=== PATIENT | male | born 1970 | race Caucasian/White ===

== ENCOUNTER → 2019-12-28 08:24 | Outpatient (CLI) | payer MEDICAID, SELFPAY ==
--- NOTE | 2019-12-28 09:07 | RAD_ITS ---
STUDY: X-RAY CHEST REASON FOR EXAM: Male, 49 years old. CHEST PAIN, RECENT PNEUMONIA -- pt states pneumonia couple weeks ago, feeling better, just a follow up TECHNIQUE: PA and lateral views of the chest. COMPARISON: None. FINDINGS: Increased markings in the right upper lobe. This may represent a focal area of infiltrate. Follow-up is recommended. There is no demonstrated pleural abnormality. Normal size heart. Normal mediastinum and tee. Normal visualized pulmonary arteries. Normal visualized aortic arch and descending thoracic aorta. There are mild degenerative changes of the visualized thoracic spine. Normal visualized ribs, clavicles, and shoulders. There is no demonstrated abnormality of the visualized soft tissue structures of the upper abdomen. RAD/Chest PA and Lateral IMPRESSION: Increased markings in the right upper lobe. Early infiltrate should be ruled out. Electronically Signed: Ahmet Sauceda, at 15:36 EDT , Service support ,
[2019-12-28 09:55] LABS: Hematocrit 41.4 % (40-54); Hemoglobin 13.4 g/dL (13.0-16.5); Mean Corp Hgb Conc 32.4 g/dL (32-36); Mean Corpuscular Hgb 30.1 pg (27.0-32.0); Mean Platelet Vol. 9.9 fl (6.2-12.0); Platelet Count 386 K/mm3 (150-450); RBC Distribution Width CV 13.9 % (11.6-14.6); RBC Distribution Width SD 47.4 fl (35.1-43.9); Red Blood Count 4.45 M/mm3 (4.6-6.2); White Blood Count 10.3 K/mm3 (4.4-11.0)
[2019-12-28 10:06] LABS: BNP,B-Type NATRIURETIC PEPTIDE 125.4 pg/mL (0-100)
[2019-12-28 10:09] LABS: Hemoglobin A1c 5.8 % (3.8-5.6)
[2019-12-28 10:26] LABS: ALB/GLOB Ratio 0.9 RATIO (0.9-2.4); AST(SGOT) 20 U/L (15-37); Alanine Aminotransfer ALT/SGPT 33 U/L (16-61); Albumin, Serum 3.6 g/dL (3.2-5.0); Alkaline Phosphatase 54 U/L (45-117); Anion Gap 5 (5-15); BUN 26 mg/dL (7-18); BUN/Creat Ratio 21.1 RATIO (10-20); Calcium,Total 9.1 mg/dL (8.5-10.1); Chloride 102 mmol/L (98-107); Creatinine, Serum 1.23 mg/dL (0.70-1.30); EST Glomerular Filtration Rate 67 mL/min (>60); Est Glom Filt Rate - Afr Amer 81 mL/min (>60); Globulin 3.9 g/dL (2.2-4.2); Glucose 102 mg/dL (74-106); Potassium 4.5 mmol/L (3.5-5.1); Protein, Total 7.5 g/dL (6.4-8.2); Sodium Level 134 mmol/L (136-145)
== END ==
DX: R07.9 Chest pain, unspecified (principal); N17.9 Acute kidney failure, unspecified; E11.22 Type 2 diabetes mellitus with diabetic chronic kidney disease; I13.0 Hypertensive heart and chronic kidney disease with heart failure and stage 1 through stage 4 chronic kidney disease, or unspecified chronic kidney disease; I50.9 Heart failure, unspecified; N18.3 Chronic kidney disease, stage 3 (moderate); I42.6 Alcoholic cardiomyopathy; G47.30 Sleep apnea, unspecified; Z87.01 Personal history of pneumonia (recurrent)
CPT/HCPCS: 36415; 71046; 80053; 83036; 83880; 85027

== ENCOUNTER 2020-08-04 12:52 | Inpatient (IN) | payer MEDICAID, SELFPAY ==
[2020-08-04 12:54] VITALS: BP 156/97; PULSE 85; RESP 17; TEMP 36.7; O2SAT 95; BMI 38.3
--- NOTE | 2020-08-04 13:39 | ED.VISSUMM ---
- ER Visit Summary Date of Service: 08/04/20 Chief Complaint: Requesting detox History of Present Illness: The patient is a 50 M presenting with alcohol intoxication, requesting detox. He states that he last drank just prior to arrival. His last detox from alcohol was in September 2019. He states he was sober for about a month. He has now been drinking 12 beers a day and 1/5 of vodka per day. Denies drug use. Denies history of alcohol withdrawal seizures. Denies other complaints. Physical Examination: Vitals are stable. Patient is afebrile. Alert no acute distress. HEENT exam is unremarkable. Neck is supple. Lungs are clear and equal bilaterally. Heart is regular rate and rhythm. Abdomen is soft nontender nondistended. Extremities are unremarkable. Skin is warm and dry. No focal neurologic deficit. Remainder of exam is unremarkable. Emergency Department Course and Treatment: CBC, chemistries unremarkable. Tox is negative. Alcohol level 423. Patient would like to be admitted for detox. Discussed with the hospitalist for admission. Disposition: Admission Impression: Alcohol dependence This note was generated with [employer] dictation software. It may contain incorrect words, spelling, and punctuation that were not noted in review of the chart prior to signing ED Disposition - Plan for ED Patient: Referrals: Tracey Santillan DO [Primary Care Provider] -
[2020-08-04 14:47] VITALS: BP 134/83; PULSE 77; RESP 16; O2SAT 93
[2020-08-04 15:08] LABS: Absolute Lymphocyte Count 3.43 X10^3/uL (0.83-4.51); Absolute Neutrophil Count 4.1 X10^3/uL (2.0-7.7); Basophil# 0.07 X10^3/uL; Basophil% 0.7 % (0-1); Eosinophil# 0.21 X10^3/uL; Eosinophils% 2.2 % (0-5); Hematocrit 49.6 % (40-54); Hemoglobin 17.1 g/dL (13.0-16.5); Lymphocyte # 3.43 X10^3/ul (4.0); Lymphocyte % 36.3 % (19-41); Mean Corp Hgb Conc 34.5 g/dL (32-36); Mean Corpuscular Hgb 32.9 pg (27.0-32.0); Mean Corpuscular Volume 95.4 fL (80-94); Mean Platelet Vol. 8.9 fl (6.2-12.0); Monocyte# 1.56 X10^3/uL; Monocyte% 16.5 % (0-10); NRBC Flagged by Analyzer 0 % (0-5); Neutrophil # 4.08 X10^3/uL (2.7-7.7); Neutrophil % 43.1 % (47-70); POSITIVE DIFFERENTIAL YES; Platelet Count 302 K/mm3 (150-450); RBC Distribution Width CV 14.6 % (11.6-14.6); RBC Distribution Width SD 51.7 fl (35.1-43.9); White Blood Count 9.5 K/mm3 (4.4-11.0)
[2020-08-04 15:19] LABS: Differential Indicated SCAN CRITERIA MET
[2020-08-04 15:23] LABS: Amphetamine Urine VISTA NEGATIVE (<1000 ng/mL); Barbiturate Urine VISTA NEGATIVE (< 200 ng/mL); Benzodiazepine Urine VISTA NEGATIVE (< 200 ng/mL); Cocaine Urine VISTA NEGATIVE (< 300 ng/mL); Ecstacy Urine VISTA NEGATIVE (< 500 ng/mL); Methadone Urine VISTA NEGATIVE (< 300 ng/mL); PCP Urine VISTA NEGATIVE (< 25 ng/mL); THC Urine VISTA NEGATIVE (< 50 ng/mL); Vista UDS pH Range 5
[2020-08-04 15:29] VITALS: BP 146/80; PULSE 84; RESP 16; O2SAT 92
[2020-08-04 15:32] LABS: ALB/GLOB Ratio 0.8 RATIO (0.9-2.4); AST(SGOT) 34 U/L (15-37); Alanine Aminotransfer ALT/SGPT 37 U/L (16-61); Albumin, Serum 3.7 g/dL (3.2-5.0); Alkaline Phosphatase 77 U/L (45-117); Anion Gap 9 (5-15); BUN 13 mg/dL (7-18); BUN/Creat Ratio 11.7 RATIO (10-20); Calcium,Total 8.5 mg/dL (8.5-10.1); Chloride 100 mmol/L (98-107); Creatinine, Serum 1.11 mg/dL (0.70-1.30); EST Glomerular Filtration Rate 75 mL/min (>60); Est Glom Filt Rate - Afr Amer 91 mL/min (>60); Estimated Creatinine Clearance 86.68 ml/min; Globulin 4.7 g/dL (2.2-4.2); Glucose 100 mg/dL (74-106); Protein, Total 8.4 g/dL (6.4-8.2); Sodium Level 134 mmol/L (136-145)
--- NOTE | 2020-08-04 15:40 | ED.RN ---
pt does not want to follow the Plan of Care Agreement for Addiction Medicine Program. Dr. Johnson aware. Pt is currently attempting to find a ride from the ED.
--- NOTE | 2020-08-04 15:45 | ED.RN ---
from the time pt arrived to ED, he has been disrespectful to all and any staff that has interacted with him.
--- NOTE | 2020-08-04 15:46 | ED.RN ---
Dr. Johnson in room speaking with pt regarding staying vs leaving. Pt informed Dr. Salguero that he would think about it.
[2020-08-04 15:50] LABS: Differential Comment SCANNED
--- NOTE | 2020-08-04 16:05 | PCM.HP.STD ---
Problem List (1) Alcohol withdrawal Status: Acute (2) Alcoholism Status: Acute (3) Hyponatremia Status: Acute (4) Erythrocytosis Status: Acute (5) Tobacco abuse Status: Chronic History of Present Illness Date of Admission: 08/04/20 Mr Salter is a 50 year old M with a past medical history of alcoholism and tobacco abuse who presented to the emergency department at [facility] on 08/04/2019 requesting alcohol detox. His last drink was just prior to his arrival in the emergency department. He has undergone detox in the past with the most recent being September 2019. At that time, he was sober for about a year and a half and then started drinking again. He currently is drinking approximately 3 to 4 25 ounce beers and 1/5 of vodka per day. He is having no acute withdrawal symptoms at this time, as his blood alcohol level on admission is 423. Vital signs are stable other than some mild hypertension. His CBC is fairly unremarkable other than some mild erythrocytosis with a hemoglobin of 17.1; I suspect this is related to hemoconcentration as he appears mildly dehydrated. His CMP shows mild hyponatremia with a sodium of 134, his LFTs are normal. Patient does admit that his withdrawals have been bad in the past. His tox screen was negative except for an ethyl alcohol level of 423. He will be admitted to [facility] for further alcohol detox. Past Medical History Past Medical History (Chronic Problems): Chronic Problems Tobacco abuse (Chronic) Allergies No Known Allergies Allergy (Verified 08/04/20 12:53) Lives: Spouse/ Significant Other Smoking Status: Current every day smoker Tobacco Use: Cigarettes Alcohol: Heavy Drugs: None - *Family History Maternal History Items: No pertinent history Paternal History Items: No pertinent history Review of Systems Constitutional: Denies: Anorexia, Chills, Fever, Night Sweats, Malaise, Weakness, Weight Change, Fatigue Eyes: Denies: Blurred vision, Drainage, Eyelid Inflammation, Pain, Redness, Vision Change HEENT: Denies: Hard of Hearing, Head Aches, Nasal bleeding, Nasal Congestion, Post Nasal Drip, Sinus Congestion, Sinus Drainage, Sore Throat, Visual Changes Cardiovascular: Denies: Chest Pain, Chest Pressure, Chest Tightness, Edema, Orthopnea, Palpitations, Paroxysmal Noc. Dyspnea, Syncope Respiratory: Denies: Cough, Pleuritic Pain, Shortness of Breath, Sputum production, Wheezing Gastrointestinal: Denies: Abdominal Pain, Constipation, Diarrhea, Hematochezia, Nausea, Melena, Vomiting Genitourinary: Denies: Dysuria, Frequency, Urgency Musculoskeletal: Denies: Back Pain, Joint Pain, Joint stiffness, Joint swelling, Joint Tenderness, Neck Pain Skin: Denies: Dryness, Jaundice, Lesions, Pruritis, Rash, Skin Changes, Wounds Neurological: Denies: Balance problems, Confusion, Difficulty swallowing, Focal weakness, Headaches, Incoordination, Numbness, Tingling, Tremor, Seizures Psychiatric: Denies: Anxiety, Depression Endocrine: Denies: Change in Body Habitus, Heat/ Cold Intolerance, Polydipsia, Polyuria Hematologic/ Lymphatic: Denies: Adenopathy, Anemia, Easy Bruising, Easy Bleeding, Petechiae, Purpura VTE Information - Inpt Only VTE Present on Admission: No VTE Mechan Device Prophylaxis: None VTE Pharm Prophylaxis ordered?: No Reason prophylaxis not ordered:: Treatment Not Indicated Patient Problems: Active and Suspected Problems Alcohol withdrawal (Acute) Alcoholism (Acute) Hyponatremia (Acute) Erythrocytosis (Acute) - Physical Exam Vitals/I&O's: Vital Signs Temp Pulse Resp BP Pulse Ox 98.1 F 84 16 146/80 H 92 08/04/20 12:54 08/04/20 15:29 08/04/20 15:29 08/04/20 15:29 08/04/20 15:29 Oxygen Delivery Method Room Air Weight: 124.738 kg Body Mass Index (BMI) 38.3 General: Alert, Oriented x3, Cooperative, No apparent distress, Well developed, Well nourished, - - Middle-aged obese white male, who appears older than stated age, sitting on the edge of the bed, no signs of withdrawal at this time HEENT: Atraumatic, PERRLA, EOMI, Normocephalic, EAC Clear Oral: Moist Mucosa, No Gingival or Mucosal Lesions/ Ulcerations Neck: Supple, Trachea Midline, Thyroid Normal Size and Texture Lungs: No rhonchi, No rales, Diminished, Wheezes - Few scattered right base Cardiovascular: Regular Rhythm, Normal S1, Normal S2, No murmurs, No Ectopic Activity, No rub noted, No Gallop, Tachycardic - Mild Abdomen: Bowel Sounds Present, Soft, Non Tender, Non-Distended, Obese Extremities: No cyanosis, No edema, Capillary Refill Less than 3 Seconds, Clubbing - Bilateral upper extremities, Peripheral Pulses Normal Skin: No rashes, No breakdown Musculoskeletal: No Tenderness to Palpation of Joints or Extremities, No Muscle Wasting Lymphatic: No Cervical, Supraclavicular, or Inguinal Adenopathy Neurological: Cranial nerves II-XII grossly intact, Neuro grossly intact Psych/Mental Status: Appropriate, Depressed, - - Tearful after talking to his Laboratory Results 08/04/20 14:30: Urine Opiates Screen NEGATIVE, Urine Methadone Screen NEGATIVE, Ur Barbiturates Screen NEGATIVE, Ur Phencyclidine Scrn NEGATIVE, Ur Amphetamines Screen NEGATIVE, U Methamphetamin-MDMA NEGATIVE, U Benzodiazepines Scrn NEGATIVE, Urine Cocaine Screen NEGATIVE, U Cannabinoids Screen NEGATIVE, Ur Drug Screen Comment 08/04/20 14:45: WBC 9.5, RBC 5.20, Hgb 17.1 H, Hct 49.6, MCV 95.4 H, MCH 32.9 H, MCHC 34.5, RDW Std Deviation 51.7 H, RDW Coeff of Yecenia 14.6, Plt Count 302, MPV 8.9, Immature Gran % (Auto) 1.200 H, Neut % (Auto) 43.1 L, Lymph % (Auto) 36.3, Robeson % (Auto) 16.5 H, Eos % (Auto) 2.2, Baso % (Auto) 0.7, Absolute Neuts (auto) 4.1, Absolute Lymphs (auto) 3.43, Nucleated RBC % 0, Differential Comment SCANNED 08/04/20 14:45: Sodium 134 L, Potassium 4.0, Chloride 100, Carbon Dioxide 25.0, Anion Gap 9, BUN 13, Creatinine 1.11, Estim Creat Clear Calc 86.68, Est GFR (MDRD) Af Amer 91, Est GFR (MDRD) Non-Af 75, BUN/Creatinine Ratio 11.7, Glucose 100, Calcium 8.5, Total Bilirubin 0.30, AST 34, ALT 37, Alkaline Phosphatase 77, Total Protein 8.4 H, Albumin 3.7, Globulin 4.7 H, Albumin/Globulin Ratio 0.8 L 08/04/20 14:45: Ethyl Alcohol 423.0 H* Assessment/Plan All Active Problems Alcohol withdrawal (Acute) Alcoholism (Acute) Hyponatremia (Acute) Erythrocytosis (Acute) Acute alcohol withdrawal -Phenobarb taper -Supportive medications -CIWA -On Ativan -Thiamine and folate -180 follow Alcohol abuse -See above Mild hyponatremia -Suspect hypovolemic hyponatremia -We will run 1 L of IV fluids -Repeat in a.m. Erythrocytosis -Suspect hemoconcentration -1 L IV fluids -Repeat CBC in a.m. Tobacco abuse -Recommend cessation -Nicotine patch 21 mcg daily DVT prophylaxis -Early ambulation CODE STATUS -Full code Inpatient E&M: 35401 Init Hosp L2
[2020-08-04 16:58] VITALS: BP 186/89; PULSE 88; RESP 16; TEMP 36.1; O2SAT 95
[2020-08-04 18:01] VITALS: BMI 38.4
[2020-08-04 18:08] VITALS: BMI 40.0
[2020-08-04 18:12] VITALS: BP 131/67; PULSE 80; RESP 20; TEMP 36.6; O2SAT 97
[2020-08-04] MEDS: Phenobarbital 32.4 MG Tablet 64.8 MG PO ×2 (18:38→22:43)
[2020-08-04] MEDS: Lactated Ringers 1,000 ML 75 ML IV (18:38)
[2020-08-04 22:28] VITALS: BP 135/71; PULSE 86; RESP 16; TEMP 36.8; O2SAT 96
[2020-08-04] MEDS: Gabapentin 300 MG Capsule PO (22:43)
[2020-08-04] MEDS: Ondansetron 8 MG Tablet PO (22:43)
[2020-08-05] VITALS (9 sets, daily range): BP systolic 115–142; BP diastolic 57–82; PULSE 70–86; RESP 15–18; TEMP 36.7–37.1; O2SAT 93–96
[2020-08-05] MEDS: Phenobarbital 32.4 MG Tablet 64.8 MG PO ×6 (02:10→22:58)
[2020-08-05] MEDS: Gabapentin 300 MG Capsule PO ×2 (06:52→18:50)
[2020-08-05 07:00] LABS: Absolute Lymphocyte Count 1.33 X10^3/uL (0.83-4.51); Absolute Neutrophil Count 5.2 X10^3/uL (2.0-7.7); Basophil# 0.05 X10^3/uL; Basophil% 0.6 % (0-1); Eosinophil# 0.12 X10^3/uL; Eosinophils% 1.4 % (0-5); Hematocrit 47.2 % (40-54); Hemoglobin 15.4 g/dL (13.0-16.5); Lymphocyte # 1.33 X10^3/ul (4.0); Lymphocyte % 15.9 % (19-41); Mean Corp Hgb Conc 32.6 g/dL (32-36); Mean Corpuscular Hgb 31.8 pg (27.0-32.0); Mean Corpuscular Volume 97.5 fL (80-94); Mean Platelet Vol. 8.9 fl (6.2-12.0); Monocyte# 1.56 X10^3/uL; Monocyte% 18.6 % (0-10); NRBC Flagged by Analyzer 0 % (0-5); Neutrophil # 5.23 X10^3/uL (2.7-7.7); Neutrophil % 62.5 % (47-70); POSITIVE DIFFERENTIAL YES; Platelet Count 237 K/mm3 (150-450); RBC Distribution Width CV 14.8 % (11.6-14.6); RBC Distribution Width SD 53.6 fl (35.1-43.9); Red Blood Count 4.84 M/mm3 (4.6-6.2); White Blood Count 8.4 K/mm3 (4.4-11.0)
[2020-08-05 07:02] LABS: Differential Indicated SCAN CRITERIA MET
[2020-08-05 07:26] LABS: Anion Gap 2 (5-15); BUN 16 mg/dL (7-18); BUN/Creat Ratio 14.3 RATIO (10-20); Calcium,Total 8.6 mg/dL (8.5-10.1); Chloride 106 mmol/L (98-107); Creatinine, Serum 1.12 mg/dL (0.70-1.30); EST Glomerular Filtration Rate 74 mL/min (>60); Est Glom Filt Rate - Afr Amer 90 mL/min (>60); Estimated Creatinine Clearance 83.28 ml/min; Glucose 73 mg/dL (74-106); Potassium 4.8 mmol/L (3.5-5.1); Sodium Level 136 mmol/L (136-145)
--- NOTE | 2020-08-05 09:57 | ADDICTION ---
This inspector automatic typewriter attempted to meet with patient this morning to complete assessments and to begin planning for discharge. Patient requested to meet with this inspector automatic typewriter tomorrow after he has time to sleep and after the withdrawal medication begins to work. This inspector automatic typewriter will attempt to meet with patient tomorrow- 08/06/2019.
[2020-08-05] MEDS: Thiamine Hydrochloride 100 MG Tablet PO (11:01)
[2020-08-05] MEDS: Folic Acid 1 MG Tablet PO (11:01)
--- NOTE | 2020-08-05 12:56 | PN_ITS ---
Patient Problems: Active and Suspected Problems Alcohol withdrawal (Acute) Alcoholism (Acute) Hyponatremia (Acute) Erythrocytosis (Acute) Subjective: Patient seen and examined. He is being managed for acute alcohol withdrawal. He has no complaints this morning. Review of systems otherwise negative. CIWA score is 4 this morning. He has otherwise remained hemodynamically stable. Vitals/I&O's: Vital Signs Temp Pulse Resp BP Pulse Ox 98.1 F 84 18 126/57 H 96 08/05/20 10:55 08/05/20 10:55 08/05/20 10:55 08/05/20 10:55 08/05/20 10:55 Oxygen Flow Rate (L/min) 2 Oxygen Delivery Method Nasal Cannula Weight: 279 lb Body Mass Index (BMI) 40.0 Intake and Output for Last 24 Hours 08/03/20 08/04/20 08/05/20 23:59 23:59 23:59 Intake Total 993 / 993 Balance 993 / 993 General: Alert, Oriented x3, Cooperative, No apparent distress HEENT: Atraumatic, PERRLA, EOMI, Normocephalic Oral: Moist Mucosa Neck: Supple, No JVD, Negative Carotid Bruits, Negative Hepatojugular Reflux, No Nodes Lungs: Clear to auscultation, Normal air movement, No rhonchi, No wheeze, No rales Cardiovascular: Regular rate, Regular Rhythm, Normal S1, Normal S2, No murmurs Abdomen: Bowel Sounds Present, Soft, Non Tender, Non-Distended, No Hepato- splenomegaly Extremities: No clubbing, No cyanosis, No edema, Capillary Refill Less than 3 Seconds Skin: No rashes, No breakdown Musculoskeletal: No Tenderness to Palpation of Joints or Extremities Lymphatic: No Cervical, Supraclavicular, or Inguinal Adenopathy Neurological: Cranial nerves II-XII grossly intact, Neuro grossly intact, Motor Exam 5/5 strength throughout Psych/Mental Status: Normal Affect, Appropriate, Alert and oriented to time, place, person, mood and affect Laboratory Results 08/04/20 14:30: Urine Opiates Screen NEGATIVE, Urine Methadone Screen NEGATIVE, Ur Barbiturates Screen NEGATIVE, Ur Phencyclidine Scrn NEGATIVE, Ur Amphetamines Screen NEGATIVE, U Methamphetamin-MDMA NEGATIVE, U Benzodiazepines Scrn NEGATIVE, Urine Cocaine Screen NEGATIVE, U Cannabinoids Screen NEGATIVE, Ur Drug Screen Comment 08/04/20 14:45: WBC 9.5, RBC 5.20, Hgb 17.1 H, Hct 49.6, MCV 95.4 H, MCH 32.9 H, MCHC 34.5, RDW Std Deviation 51.7 H, RDW Coeff of Yecenia 14.6, Plt Count 302, MPV 8.9, Immature Gran % (Auto) 1.200 H, Neut % (Auto) 43.1 L, Lymph % (Auto) 36.3, Edmonson % (Auto) 16.5 H, Eos % (Auto) 2.2, Baso % (Auto) 0.7, Absolute Neuts (auto) 4.1, Absolute Lymphs (auto) 3.43, Nucleated RBC % 0, Differential Comment SCANNED 08/04/20 14:45: Sodium 134 L, Potassium 4.0, Chloride 100, Carbon Dioxide 25.0, Anion Gap 9, BUN 13, Creatinine 1.11, Estim Creat Clear Calc 86.68, Est GFR (MDRD) Af Amer 91, Est GFR (MDRD) Non-Af 75, BUN/Creatinine Ratio 11.7, Glucose 100, Calcium 8.5, Total Bilirubin 0.30, AST 34, ALT 37, Alkaline Phosphatase 77, Total Protein 8.4 H, Albumin 3.7, Globulin 4.7 H, Albumin/Globulin Ratio 0.8 L 08/04/20 14:45: Ethyl Alcohol 423.0 H* 08/05/20 06:38: WBC 8.4, RBC 4.84, Hgb 15.4, Hct 47.2, MCV 97.5 H, MCH 31.8, MCHC 32.6 D, RDW Std Deviation 53.6 H, RDW Coeff of Yecenia 14.8 H, Plt Count 237, MPV 8.9, Immature Gran % (Auto) 1.000 H, Neut % (Auto) 62.5, Lymph % (Auto) 15.9 L, Edmonson % (Auto) 18.6 H, Eos % (Auto) 1.4, Baso % (Auto) 0.6, Absolute Neuts (auto) 5.2, Absolute Lymphs (auto) 1.33, Nucleated RBC % 0, Differential Comment 08/05/20 06:38: Sodium 136, Potassium 4.8, Chloride 106, Carbon Dioxide 28.0, Anion Gap 2 L, BUN 16, Creatinine 1.12, Estim Creat Clear Calc 83.28, Est GFR (MDRD) Af Amer 90, Est GFR (MDRD) Non-Af 74, BUN/Creatinine Ratio 14.3, Glucose 73 L, Calcium 8.6 Current Medications Dicyclomine HCl (Dicyclomine 10 Mg Capsule) 20 mg PO Q6H PRN PRN PRN Reason: abdominal discomfort Folic Acid (Folic Acid 1 Mg Tablet) 1 mg PO DAILY@0800 [facility] Last Admin: 08/05/20 11:01 Dose: 1 mg Documented by: Gabapentin (Gabapentin 300 Mg Capsule) 300 mg PO Q8H PRN PRN PRN Reason: moderate to severe anxiety Last Admin: 08/05/20 06:52 Dose: 300 mg Documented by: Hydroxyzine Pamoate (Hydroxyzine Grace 25 Mg Capsule) 50 mg PO Q4H PRN PRN PRN Reason: mild anxiety Loperamide HCl (Loperamide 2 Mg Capsule) 2 mg PO Q4H PRN PRN PRN Reason: LOOSE STOOLS Lorazepam (Lorazepam 2 Mg/Ml Syringe) 2 mg IV Q2H PRN PRN; Protocol PRN Reason: CIWA score > 8 but <15 Nicotine (Nicotine 21 Mg Patch) 21 mg TD DAILY [facility] Last Admin: 08/05/20 11:01 Dose: 21 mg Documented by: Ondansetron HCl (Ondansetron 8 Mg Tablet) 8 mg PO Q8H PRN PRN PRN Reason: NAUSEA Last Admin: 08/04/20 22:43 Dose: 8 mg Documented by: Phenobarbital (Phenobarbital 32.4 Mg Tablet) 97.2 mg PO Q4H [facility]; Taper Stop: 08/09/20 01:59 Last Admin: 08/05/20 11:02 Dose: 97.2 mg Documented by: Sodium Chloride (0.9% Saline Lock 10 Ml Syringe) 10 - 40 ml IV UD PRN PRN Reason: SALINE FLUSH Thiamine HCl (Thiamine Hydrochloride 100 Mg Tablet) 100 mg PO DAILYCM [facility] Last Admin: 08/05/20 11:01 Dose: 100 mg Documented by: Trazodone HCl (Trazodone 100 Mg Tablet) 100 mg PO QHS PRN PRN Reason: INSOMNIA STROKE Vital Signs/Narrative: Vital Signs Temp Pulse Resp BP Pulse Ox 08/05/20 10:55 98.1 F 84 18 126/57 H 96 Medical Necessity - Tobacco Use Smoking Status: Current every day smoker Tobacco Use: Cigarettes Assessment/Plan All Active Problems Alcohol withdrawal (Acute) Alcoholism (Acute) Hyponatremia (Acute) Erythrocytosis (Acute) #Acute alcohol withdrawal * Alcohol withdrawal protocol with phenobarbital * On thiamine, Multivite and folic acid. * CIWA score this morning is 4. # Hyponatremia: resolved. Na is 136 today after gentle hydration with IVF #Nicotine dependence; counseled to quit. Nicotine patch 21mg daily # DVT prophylaxis: low risk. encourage ambulation Disposition; is to go home after he is done with a withdrawal protocol. [facility] consulted Inpatient E&M: 31415 Subs Hosp L2
[2020-08-05] MEDS: hydrOXYzine PAM 25 MG Capsule 50 MG PO ×2 (18:50→23:03)
[2020-08-05] MEDS: 0.9% Saline Lock 10 ML Syringe IV (19:58)
[2020-08-05] MEDS: LORazepam 2 MG/ML Syringe IV (19:58)
[2020-08-06 02:45] VITALS: BP 125/69; PULSE 66; RESP 18; TEMP 36.3; O2SAT 94
[2020-08-06] MEDS: Phenobarbital 32.4 MG Tablet 64.8 MG PO ×6 (02:48→21:19)
[2020-08-06 09:08] VITALS: BP 138/88; PULSE 63; RESP 18; TEMP 36.8; O2SAT 96
[2020-08-06] MEDS: Thiamine Hydrochloride 100 MG Tablet PO (09:11)
[2020-08-06] MEDS: Folic Acid 1 MG Tablet PO (09:11)
[2020-08-06] MEDS: LORazepam 2 MG/ML Syringe IV ×3 (09:28→21:19)
[2020-08-06] MEDS: 0.9% Saline Lock 10 ML Syringe IV ×2 (09:28→17:34)
[2020-08-06 10:45] VITALS: BP 144/76; PULSE 74; RESP 20; TEMP 36.4; O2SAT 97
--- NOTE | 2020-08-06 11:12 | PCM.PN.HOSP ---
Patient Problems: Active and Suspected Problems Alcohol withdrawal (Acute) Alcoholism (Acute) Hyponatremia (Acute) Erythrocytosis (Acute) Subjective: Patient seen and examined. He complains of feeling a bit nervous this morning but says he was just medicated for it. Review of signs otherwise negative. CIWA score today is 1. Vitals/I&O's: Vital Signs Temp Pulse Resp BP Pulse Ox 97.5 F L 74 20 H 144/76 H 97 08/06/20 10:45 08/06/20 10:45 08/06/20 10:45 08/06/20 10:45 08/06/20 10:45 Oxygen Flow Rate (L/min) 2 Oxygen Delivery Method CPAP Weight: 279 lb Body Mass Index (BMI) 40.0 Intake and Output for Last 24 Hours 08/04/20 08/05/20 08/06/20 23:59 23:59 23:59 Intake Total 2093 / 2493 900 / 900 Balance 2093 / 2493 900 / 900 General: Alert, Oriented x3, Cooperative, No apparent distress HEENT: Atraumatic, PERRLA, EOMI, Normocephalic Oral: Moist Mucosa Neck: Supple, No JVD, Negative Carotid Bruits, Negative Hepatojugular Reflux, No Nodes Lungs: Clear to auscultation, Normal air movement, No rhonchi, No wheeze, No rales Cardiovascular: Regular rate, Regular Rhythm, Normal S1, Normal S2, No murmurs Abdomen: Bowel Sounds Present, Soft, Non Tender, Non-Distended, No Hepato-splenomegaly Extremities: No clubbing, No cyanosis, No edema, Capillary Refill Less than 3 Seconds Skin: No rashes, No breakdown Musculoskeletal: No Tenderness to Palpation of Joints or Extremities Lymphatic: No Cervical, Supraclavicular, or Inguinal Adenopathy Neurological: Cranial nerves II-XII grossly intact, Neuro grossly intact, Motor Exam 5/5 strength throughout Psych/Mental Status: looks anxious, Alert and oriented to time, place, person, mood and affect Current Medications Dicyclomine HCl (Dicyclomine 10 Mg Capsule) 20 mg PO Q6H PRN PRN PRN Reason: abdominal discomfort Folic Acid (Folic Acid 1 Mg Tablet) 1 mg PO DAILY@0800 [facility] Last Admin: 08/06/20 09:11 Dose: 1 mg Documented by: Gabapentin (Gabapentin 300 Mg Capsule) 300 mg PO Q8H PRN PRN PRN Reason: moderate to severe anxiety Last Admin: 08/05/20 18:50 Dose: 300 mg Documented by: Hydroxyzine Pamoate (Hydroxyzine Grace 25 Mg Capsule) 50 mg PO Q4H PRN PRN PRN Reason: mild anxiety Last Admin: 08/05/20 23:03 Dose: 50 mg Documented by: Loperamide HCl (Loperamide 2 Mg Capsule) 2 mg PO Q4H PRN PRN PRN Reason: LOOSE STOOLS Lorazepam (Lorazepam 2 Mg/Ml Syringe) 2 mg IV Q2H PRN PRN; Protocol PRN Reason: CIWA score > 8 but <15 Last Admin: 08/06/20 09:28 Dose: 2 mg Documented by: Nicotine (Nicotine 21 Mg Patch) 21 mg TD DAILY [facility] Last Admin: 08/06/20 09:11 Dose: 21 mg Documented by: Ondansetron HCl (Ondansetron 8 Mg Tablet) 8 mg PO Q8H PRN PRN PRN Reason: NAUSEA Last Admin: 08/04/20 22:43 Dose: 8 mg Documented by: Phenobarbital (Phenobarbital 32.4 Mg Tablet) 64.8 mg PO Q4H [facility]; Taper Stop: 08/09/20 01:59 Last Admin: 08/06/20 09:11 Dose: 64.8 mg Documented by: Sodium Chloride (0.9% Saline Lock 10 Ml Syringe) 10 - 40 ml IV UD PRN PRN Reason: SALINE FLUSH Last Admin: 08/06/20 09:28 Dose: 10 ml Documented by: Thiamine HCl ([facility] Hydrochloride 100 Mg Tablet) [facility] Last Admin: 08/06/20 09:11 Dose: 100 mg Documented by: Trazodone HCl (Trazodone 100 Mg Tablet) 100 mg PO QHS PRN PRN Reason: INSOMNIA STROKE Vital Signs/Narrative: Vital Signs Temp Pulse Resp BP Pulse Ox 08/06/20 10:45 97.5 F L 74 20 H 144/76 H 97 08/06/20 09:08 98.2 F 63 18 138/88 H 96 Medical Necessity - Tobacco Use Smoking Status: Current every day smoker Tobacco Use: Cigarettes Assessment/Plan All Active Problems Alcohol withdrawal (Acute) Alcoholism (Acute) Hyponatremia (Acute) Erythrocytosis (Acute) #Acute alcohol withdrawal Alcohol withdrawal protocol with phenobarbital On thiamine, Multivite and folic acid. CIWA score this morning is 1 # Hyponatremia: resolved. #Nicotine dependence; counseled to quit. Nicotine patch 21mg daily # DVT prophylaxis: low risk. encourage ambulation Inpatient E&M: 86338 Subs Hosp L2
--- NOTE | 2020-08-06 11:48 | ADDICTION ---
This law writer attempted to meet with patient in his room. Patient was not alert and did not fully rouse to verbal queuing. This law writer followed up with nurse who noted that she recently gave him Ativan which causes drowsiness. This law writer was unable to meet with patient due to drowsiness. This law writer will attempt to meet with patient tomorrow 08/07/2020.
[2020-08-06 13:56] VITALS: BP 121/72; PULSE 71; RESP 18; TEMP 36.4; O2SAT 95
--- NOTE | 2020-08-06 15:26 | CHAPLAIN ---
Type of Pastoral Visit _x__ Initial Visit ___ Follow-up Visit ___ On-call Visit ___ General Patient Visit ___ Spiritual Assessment ___ Family Conference ___ Bereavement ___ Rapid Response ___ Code Blue ___ Other (describe below) Pastoral Care Referral From ___ Patient ___ Family ___ Nurse ___ Physician ___ Urban Planner ___ Behavioral Instructor _x__ Other (describe below) Sacrament/Intervention _x__ Active listening ___ Anointing ___ Christianity ___ Bereavement ___ Communion ___ Halima exploration ___ ___ Life review ___ Prayer ___ Reconciliation ___ Sacrament of Sick ___ Supportive presence ___ Wedding ___ Other (describe below) Pastoral Comments patient light on and went into room to introduce self and role of day care aide; pt is requesting clean pants; pt says he has not been feeling too well but states he has no other needs at this time; offer of support given as desired
[2020-08-06 17:29] VITALS: BP 140/90; PULSE 80; RESP 18; TEMP 36.4; O2SAT 97
[2020-08-06 21:09] VITALS: BP 160/77; PULSE 75; RESP 16; TEMP 36.8; O2SAT 95
[2020-08-06] MEDS: hydrOXYzine PAM 25 MG Capsule 50 MG PO (23:13)
[2020-08-06] MEDS: Ondansetron 8 MG Tablet PO (23:13)
[2020-08-06] MEDS: traZODone 100 MG Tablet PO (23:13)
--- NOTE | 2020-08-07 00:29 | NURSING ---
0015 Pt's girlfriend, Carolynn Zamora, returned call and this RN explained pt. was feeling very anxious, wanting to leave and requesting to speak with her. This RN explained per the rules we are not allowed to give phones to the patients in the [facility] program, but offered to call her and relay a message from the pt. This was acceptable to pt. and he agreed to stay. Checked on pt. after phone call and he was sleeping but will tell pt. what girlfriend said when he wakes. Will continue to monitor and offer reassurance.
[2020-08-07 03:10] VITALS: BP 135/74; PULSE 68; RESP 16; TEMP 36.6; O2SAT 98
[2020-08-07] MEDS: Gabapentin 300 MG Capsule PO (03:15)
[2020-08-07] MEDS: Phenobarbital 32.4 MG Tablet 64.8 MG PO ×2 (03:15→07:28)
[2020-08-07] MEDS: hydrOXYzine PAM 25 MG Capsule 50 MG PO (07:28)
--- NOTE | 2020-08-07 07:28 | NURSING ---
pt informs said nurse that if 180 isn't here by 0830 i am leaving AMA. Informed of POC and if pt chooses to leave AMA informed of process. Pt verbalizes understanding.
--- NOTE | 2020-08-07 07:28 | PCS.PANDOC ---
PANDEMIC DOCUMENTATION INITIATED: Date: 07/09/2020 Time:
--- NOTE | 2020-08-07 07:51 | NURSING ---
AMA form signed
--- NOTE | 2020-08-07 08:13 | DCINST_ITS ---
- Discharge Diagnoses Current Active Problems: Current Active and Chronic Problems Alcohol withdrawal (Acute) Alcoholism (Acute) Hyponatremia (Acute) Erythrocytosis (Acute) Tobacco abuse (Chronic) You will use the following diet at home:: Cardiac Your food should be the consistency of: Regular Your liquids should be the consistency of: Regular/Thin Discharge Activity: Return to Normal Activity Weight Bearing Status: Weight bearing as tolerated Call your doctor if you observe: Fever of 101 or Higher, Shortness of breath, Swelling in the ankles Instructions: ED Withdrawal Alcohol Additional Instructions: follow up with [facility] on outpatient basis. Allergies/Adverse Reactions: Allergies No Known Allergies Allergy (Verified 08/04/20 12:53) Primary Care Physician: Tracey Santillan DO [Primary Care Provider] - Please follow up with your Primary Care Physician in: 1-2 weeks Test Results: Test results from this visit will be discussed in further detail at your follow- up appointment, if applicable. Proposed Discharge Date: 08/07/20
--- NOTE | 2020-08-07 08:14 | DS.PCM_ITS ---
Discharge Date and Diagnosis - Problem List Patient Problems: Active and Suspected Problems Alcohol withdrawal (Acute) Alcoholism (Acute) Hyponatremia (Acute) Erythrocytosis (Acute) Date of Admission: 08/04/20 Date of Discharge: 08/07/20 - Primary Discharge Diagnosis Acute Problems: Active Problems Alcohol withdrawal (Acute) Alcoholism (Acute) Hyponatremia (Acute) Erythrocytosis (Acute) - Secondary Discharge Diagnosis Chronic Problems: Chronic Problems Tobacco abuse (Chronic) Hospital Course and Treatment Summary of Care Provided: The patient is a 50 year old M with a past medical history of alcohol and nicotine dependence was admitted through the ED on 08/04/2019 for acute alcohol withdrawal. He had been to detox in September 2019 and states he was sober for a while and started drinking again. Patient drank about 3 to 425 ounce beers and 1/5 of vodka daily. Blood alcohol level on admission was 423. He was admitted and managed for acute alcohol withdrawal and started on phenobarbital withdrawal protocol. He was also put on thiamine, multivitamin and folic acid. Patient tolerated 3-day detox process well. He remained stable. On 08/07/2020, patient threatened to sign out AGAINST MEDICAL ADVICE. However patient was counseled and told that it was the day that he was going to be discharged anyway. Patient was therefore amenable to staying and was reviewed by physician and had no complaints. He was discharged home on 08/07/2020 and is follow-up with [facility] on outpatient basis. Patient seen and examined prior to discharge. He had no complaints. Review of stems otherwise negative. Labs and vitals reviewed. Home medication reviewed and reconciled. O/E: Vital Signs Temp Pulse Resp BP Pulse Ox 97.8 F 68 16 135/74 H 98 08/07/20 03:10 08/07/20 03:10 08/07/20 03:10 08/07/20 03:10 08/07/20 03:10 [] General: Alert, Oriented x3, Cooperative, No apparent distress HEENT: Atraumatic, PERRLA, EOMI, Normocephalic Oral: Moist Mucosa Neck: Supple, No JVD, Negative Carotid Bruits, Negative Hepatojugular Reflux, No Nodes Lungs: Clear to auscultation, Normal air movement, No rhonchi, No wheeze, No rales Cardiovascular: Regular rate, Regular Rhythm, Normal S1, Normal S2, No murmurs Abdomen: Bowel Sounds Present, Soft, Non Tender, Non-Distended, No Hepato- splenomegaly Extremities: No clubbing, No cyanosis, No edema, Capillary Refill Less than 3 Seconds Skin: No rashes, No breakdown Musculoskeletal: No Tenderness to Palpation of Joints or Extremities Lymphatic: No Cervical, Supraclavicular, or Inguinal Adenopathy Neurological: Cranial nerves II-XII grossly intact, Neuro grossly intact, Motor Exam 5/5 strength throughout Psych/Mental Status: lo Alert and oriented to time, place, person, mood and affect Plan is for discharge home today. Patient Problems: Active and Suspected Problems Alcohol withdrawal (Acute) Alcoholism (Acute) Hyponatremia (Acute) Erythrocytosis (Acute) - Physical Exam Vitals/I&O's: Vital Signs Temp Pulse Resp BP Pulse Ox 97.8 F 68 16 135/74 H 98 08/07/20 03:10 08/07/20 03:10 08/07/20 03:10 08/07/20 03:10 08/07/20 03:10 Oxygen Flow Rate (L/min) 2 Oxygen Delivery Method CPAP Weight: 279 lb Body Mass Index (BMI) 40.0 Intake and Output for Last 24 Hours 08/05/20 08/06/20 08/07/20 23:59 23:59 23:59 Intake Total 3 / 2493 2180 / 2180 Balance 2093 / 2493 2180 / 2180 Current Medications Dicyclomine HCl (Dicyclomine 10 Mg Capsule) 20 mg PO Q6H PRN PRN PRN Reason: abdominal discomfort Folic Acid (Folic Acid 1 Mg Tablet) 1 mg PO DAILY@0800 [facility] Last Admin: 08/06/20 09:11 Dose: 1 mg Documented by: Gabapentin (Gabapentin 300 Mg Capsule) 300 mg PO Q8H PRN PRN PRN Reason: moderate to severe anxiety Last Admin: 08/07/20 03:15 Dose: 300 mg Documented by: Hydroxyzine Pamoate (Hydroxyzine Grace 25 Mg Capsule) 50 mg PO Q4H PRN PRN PRN Reason: mild anxiety Last Admin: 08/07/20 07:28 Dose: 50 mg Documented by: Loperamide HCl (Loperamide 2 Mg Capsule) 2 mg PO Q4H PRN PRN PRN Reason: LOOSE STOOLS Lorazepam (Lorazepam 2 Mg/Ml Syringe) 2 mg IV Q2H PRN PRN; Protocol PRN Reason: CIWA score > 8 but <15 Last Admin: 08/06/20 21:19 Dose: 2 mg Documented by: Nicotine (Nicotine 21 Mg Patch) 21 mg TD DAILY [facility] Last Admin: 08/06/20 09:11 Dose: 21 mg Documented by: Ondansetron HCl (Ondansetron 8 Mg Tablet) 8 mg PO Q8H PRN PRN PRN Reason: NAUSEA Last Admin: 08/06/20 23:13 Dose: 8 mg Documented by: Phenobarbital (Phenobarbital 32.4 Mg Tablet) 64.8 mg PO Q6H [facility]; Taper Stop: 08/09/20 01:59 Last Admin: 08/07/20 07:28 Dose: 64.8 mg Documented by: Sodium Chloride (0.9% Saline Lock 10 Ml Syringe) 10 - 40 ml IV UD PRN PRN Reason: SALINE FLUSH Last Admin: 08/06/20 17:34 Dose: 10 ml Documented by: Thiamine HCl (Thiamine Hydrochloride 100 Mg Tablet) 100 mg PO DAILYCM [facility] Last Admin: 08/06/20 09:11 Dose: 100 mg Documented by: Trazodone HCl (Trazodone 100 Mg Tablet) 100 mg PO QHS PRN PRN Reason: INSOMNIA Last Admin: 08/06/20 23:13 Dose: 100 mg Documented by: Discharge Diet: No Restrictions Discharge Activity: Return to Normal Activity Weight Bearing Status: Weight bearing as tolerated Call your doctor if you observe: Fever of 101 or Higher, Shortness of breath, Swelling in the ankles Primary Care Physician: Tracey Santillan DO [Primary Care Provider] - Please follow up with your Primary Care Physician in: 1-2 weeks Patient Instructions: ED Withdrawal Alcohol Disposition: Home Minutes spent on discharge:: 45 Patient Condition:: Stable Medical Necessity - Tobacco Use Smoking Status: Current every day smoker Tobacco Use: Cigarettes Meaningful Use Info Meaningful Use Diagnoses (Choose all that apply): None applicable Inpatient E&M: 64809 Disch Hosp
== END 2020-08-07 09:10 | disposition home or self-care (01) | DRG 775 ==
LOC: ED 14:01 → MS3 17:16
PROVIDERS: Admitting Provider Internal Medicine; Emergency Provider Emergency Medicine; Visit Provider Student in an Organized Health Care Education/Training Program
DX: F10.239 Alcohol dependence with withdrawal, unspecified (principal); F10.229 Alcohol dependence with intoxication, unspecified; Y90.8 Blood alcohol level of 240 mg/100 ml or more; E86.0 Dehydration; E87.1 Hypo-osmolality and hyponatremia; I25.10 Atherosclerotic heart disease of native coronary artery without angina pectoris; E11.9 Type 2 diabetes mellitus without complications; I10 Essential (primary) hypertension; D75.1 Secondary polycythemia; E66.9 Obesity, unspecified; Z68.41 Body mass index [BMI] 40.0-44.9, adult; F17.210 Nicotine dependence, cigarettes, uncomplicated
CPT/HCPCS: 80048; 80053; 80307; 82077; 85025; 99284; 99406; J7120; A4216

== ENCOUNTER 2020-08-13 11:13 | Inpatient (IN) | payer MEDICAID, SELFPAY ==
[2020-08-13] VITALS (7 sets, daily range): BP systolic 90–128; BP diastolic 44–76; PULSE 73–83; RESP 16–18; TEMP 36.4–36.9; O2SAT 92–96; BMI 41.8; BMI 39.9
--- NOTE | 2020-08-13 11:40 | ED.DCSUM_ITS ---
History of Present Illness Chief Complaint: ETOH Intox Informant: Patient Narrative: 42-year-old male states he needs detoxification from alcohol. Patient was recently admitted and discharged on the sixth for the same. He states the next day he started drinking. He chose not to go to [facility] because he was afraid. He does not wish to elaborate what makes him afraid. He states he is currently going through divorce and she is taking their children. 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 He typically drinks vodka. His last drink of alcohol was right before he came into emergency. He states that he is actively withdrawing. He states he has all these classic symptoms. Past Medical History - Allergies and Home Meds Allergies/Adverse Reactions: Allergies No Known Allergies Allergy (Verified 08/13/20 11:16) Primary Care Physician: Tracey Santillan DO [Primary Care Provider] - Surgical History: noncontributory Lives: Alone Smoking Status: Current every day smoker Alcohol: Heavy Drugs: None - Family History Maternal Family History: Reports: No pertinent history Paternal Family History: Reports: No pertinent history Review of Systems General: Denies: Chills, Fever, Sweats Eyes: Denies: Visual changes - bilaterally, Diplopia ENT: Denies: Rhinorrhea, Sore throat Cardiovascular: Denies: Chest pain, Palpitations Respiratory: Denies: Dyspnea, Cough, Dyspnea on exertion Gastrointestinal: Denies: Abdominal pain, Nausea, Vomiting, Diarrhea, Melena, Hematochezia Genitourinary: Denies: Dysuria, Hematuria, Frequency Musculoskeletal: Denies: Back pain, Extremity Pain Skin: Denies: Rash, Wounds Neurological: Denies: Headache, Weakness, Numbness Psych: Reports: Depression, Anxiety. Denies: Suicidal thoughts, Suicidal ideations Physical Exam Vital Signs/Narrative: Vital Signs Temp Pulse Resp BP Pulse Ox 08/13/20 11:25 97.5 F L 74 18 117/64 94 08/13/20 11:14 97.5 F L 74 18 119/74 94 Inital Vital Signs reviewed: Yes General: Well nourished, Well developed, Obese, No Acute Distress Head: Normocephalic, Atraumatic Eyes: Perrl, EOMI ENT: Moist mucous membranes, No rhinorrhea Neck: Supple, Nontender Cardiovascular: Regular rate, Regular rhythm, No murmurs Respiratory: No distress, CTA bilaterally, Chest nontender Abdomen: Soft, Nontender, Nondistended, Normal bowel sounds Back: Nontender, Normal Inspection Extremities: Nontender, No edema Skin: Normal color, No rash Neurological: Alert, Oriented x3, Cranial nerves II-XII grossly intact, Normal Strength, Normal Sensation, - - Patient appears to be clinically intoxicated. He has some mild ataxia and slurred speech consistent with intoxication. Psychological: Normal affect, Normal Mood Diagnostic/Tx/Re-eval - Medical Decision Making I spoke with her hospitalist who will be admitting. Basic blood work started. ED Disposition - Plan for ED Patient: Disposition: Acute Care Hospital [facility] Diagnosis: Alcohol withdrawal, Alcoholism Referrals: Tracey Santillan DO [Primary Care Provider] -
--- NOTE | 2020-08-13 12:10 | CM.ED ---
SOCIAL WORK Reason for Referral- Patient wanting detox from alcohol Met with patient in room. Introduced role and reason for referral. Patient reports left program last week and relapsed the next day. Patient states I should have went straight into residential. Patient reports last drink was prior to coming to the hospital today. Patient tearful when discussing addiction to alcohol. Emotional support and active listening provided. Patient to be admitted to [facility]. This worker reviewed agreement with patient as nurse busy at this time. Patient in agreement and signed form. Call to [facility] Treatment Navigator, Cyrus. Cyrus updated on patient's admission and reports will notify Jo. Plan: Admit to [facility] for alcohol withdrawal management. Marilou Joe, ELECTRICAL PLUMBING SUPERVISOR, FOOD PRESERVATION SCIENTIST
--- NOTE | 2020-08-13 12:15 | PCM.HP.STD ---
Problem List (1) Alcohol withdrawal Status: Acute (2) CAD (coronary artery disease) Status: Chronic (3) Body mass index (BMI) of 40.1 to 44.9 in adult Status: Chronic (4) MARIE (obstructive sleep apnea) Status: Chronic (5) Alcoholism Status: Chronic (6) Erythrocytosis Status: Chronic (7) Hyponatremia Status: Acute (8) Tobacco abuse Status: Chronic History of Present Illness Date of Admission: 08/13/20 Chief Complaint: Tremulousness The patient is a 50 year old M past medical history segment for alcoholism recently discharged from the hospital following hospitalization for acute alcohol withdrawal. Patient was supposed to follow-up with 180 however he did not follow-up. He relapsed. Presented to the ED with tremulousness as well as anxiety. Patient admits to drinking fifth of vodka on a daily basis. His assessment on admission was consistent with acute alcohol withdrawal admitted to regular nursing floor for further management. Past Medical History Past Medical History (Chronic Problems): Chronic Problems Alcoholism (Chronic) Erythrocytosis (Chronic) Tobacco abuse (Chronic) CAD (coronary artery disease) (Chronic) Body mass index (BMI) of 40.1 to 44.9 in adult (Chronic) MARIE (obstructive sleep apnea) (Chronic) Allergies No Known Allergies Allergy (Verified 08/13/20 11:16) Home Medications: Ambulatory Orders Medication Instructions Recorded Atorvastatin Calcium 80 mg PO DAILY 08/13/20 B Complex W-C No.20/Folic Acid 1 mg PO DAILY 08/13/20 [Renal Caps Softgel] Carvedilol 25 mg PO BID 08/13/20 Fluoxetine HCl 40 mg PO DAILY 08/13/20 Sacubitril/Valsartan 24/26 mg 1 ea PO BID 08/13/20 [Entresto 24 mg-26 mg Tablet] Surgical History: noncontributory Lives: Alone Smoking Status: Current every day smoker Alcohol: Heavy Drugs: None - *Family History Maternal History Items: Diabetes Paternal History Items: No pertinent history Review of Systems Constitutional: Denies: Anorexia, Chills, Fever, Night Sweats, Weight Change HEENT: Denies: Head Aches, Sinus Congestion, Sinus Drainage Cardiovascular: Denies: Chest Pain, Orthopnea, Palpitations, Paroxysmal Noc. Dyspnea Respiratory: Denies: Cough, Shortness of breath at rest, Shortness of breath upon exertion, Sputum production Gastrointestinal: Denies: Abdominal Pain, Hematemesis, Hematochezia, Nausea, Melena, Vomiting Genitourinary: Denies: Dysuria, Frequency, Hematuria, Urgency Musculoskeletal: Denies: Joint Pain, Joint Tenderness Skin: Denies: Rash Neurological: Reports: Tremor. Denies: Focal weakness, Numbness, Tingling Psychiatric: Reports: Anxiety. Denies: Homicidal Ideations, Suicidal Ideations Hematologic/ Lymphatic: Denies: Easy Bruising, Easy Bleeding VTE Information - Inpt Only VTE Present on Admission: No VTE Mechan Device Prophylaxis: None VTE Pharm Prophylaxis ordered?: Yes Patient Problems: Active and Suspected Problems Alcohol withdrawal (Acute) Hyponatremia (Acute) Objective: GENERAL: Tearful HEENT: Atraumatic; EYES; Anicteric, Normal Conjunctiva NECK; supple, normal thyroid, RESPIRATORY: Diminished to auscultation CARDIOVASCULAR: Regular S1 S2, GI: soft, normoactive bowel sounds, : No Renal angle tenderness; EXTREMITIES: No edema, no clubbing, MUSCULOSKELETAL: no muscle waisting NEURO: Awake; no lateralizing signs. SKIN: No Rash PSYCH; Flat affect - Physical Exam Vitals/I&O's: Vital Signs Temp Pulse Resp BP Pulse Ox 97.5 F L 74 18 117/64 94 08/13/20 11:25 08/13/20 11:25 08/13/20 11:25 08/13/20 11:25 08/13/20 11:25 Oxygen Delivery Method Room Air Weight: 136.078 kg Body Mass Index (BMI) 41.8 Laboratory Results 08/13/20 12:00: Urine Opiates Screen Pending, Urine Methadone Screen Pending, Ur Barbiturates Screen Pending, Ur Phencyclidine Scrn Pending, Ur Amphetamines Screen Pending, U Methamphetamin-MDMA Pending, U Benzodiazepines Scrn Pending, Urine Cocaine Screen Pending, U Cannabinoids Screen Pending, Ur Drug Screen Comment Assessment/Plan All Active Problems Alcohol withdrawal (Acute) Hyponatremia (Acute) April is a 50-year-old gentleman with history of chronic alcohol use presented with acute alcohol withdrawal 1. Acute alcohol withdrawal -patient has been admitted to regular nursing floor for medical stabilization using phenobarb taper. Also did consult counseling service. Plan is for patient to follow-up with 180 following his discharge 2. Chronic alcohol use ?Counseled on cessation 3. Obstructive sleep apnea ?On CPAP at night 4. Coronary artery disease ?With previous NH 5. Morbid obesity with BMI of 41.8 ?Weight loss advised 6. Tobacco dependence - Counseled on cessation, offered nicotine patch for tobacco cravings 7. Chronic congestive heart failure ?EF unknown patient; patient is however On Entresto did continue 8. Dyslipidemia -Patient is on statin therapy, continued at home dose 9. Depression ?Patient is on SSRI did continue 10. DVT prophylaxis -Lovenox 40 mg SC twice daily Inpatient E&M: 89788 Init Hosp L3
[2020-08-13 12:31] LABS: Absolute Lymphocyte Count 3.14 X10^3/uL (0.83-4.51); Absolute Neutrophil Count 7.1 X10^3/uL (2.0-7.7); Basophil# 0.09 X10^3/uL; Basophil% 0.7 % (0-1); Eosinophil# 0.26 X10^3/uL; Hematocrit 45.7 % (40-54); Hemoglobin 16.1 g/dL (13.0-16.5); Lymphocyte # 3.14 X10^3/ul (4.0); Lymphocyte % 23.9 % (19-41); Mean Corp Hgb Conc 35.2 g/dL (32-36); Mean Corpuscular Hgb 33.1 pg (27.0-32.0); Monocyte# 2.44 X10^3/uL; Monocyte% 18.6 % (0-10); NRBC Flagged by Analyzer 0 % (0-5); Neutrophil # 7.07 X10^3/uL (2.7-7.7); Neutrophil % 53.7 % (47-70); POSITIVE DIFFERENTIAL YES; Platelet Count 277 K/mm3 (150-450); RBC Distribution Width CV 13.5 % (11.6-14.6); RBC Distribution Width SD 46.5 fl (35.1-43.9); Red Blood Count 4.86 M/mm3 (4.6-6.2); White Blood Count 13.1 K/mm3 (4.4-11.0)
[2020-08-13 12:43] LABS: Differential Indicated SCAN CRITERIA MET
[2020-08-13 12:47] LABS: ALB/GLOB Ratio 0.7 RATIO (0.9-2.4); AST(SGOT) 36 U/L (15-37); Alanine Aminotransfer ALT/SGPT 39 U/L (16-61); Albumin, Serum 3.2 g/dL (3.2-5.0); Alkaline Phosphatase 89 U/L (45-117); Anion Gap 8 (5-15); BUN 19 mg/dL (7-18); BUN/Creat Ratio 17.1 RATIO (10-20); Calcium,Total 7.9 mg/dL (8.5-10.1); Chloride 95 mmol/L (98-107); Creatinine, Serum 1.11 mg/dL (0.70-1.30); EST Glomerular Filtration Rate 75 mL/min (>60); Est Glom Filt Rate - Afr Amer 91 mL/min (>60); Estimated Creatinine Clearance 86.68 ml/min; Globulin 4.3 g/dL (2.2-4.2); Glucose 116 mg/dL (74-106); Potassium 4.3 mmol/L (3.5-5.1); Protein, Total 7.5 g/dL (6.4-8.2); Sodium Level 127 mmol/L (136-145)
[2020-08-13 13:09] LABS: International Normalized Ratio 0.9; Prothrombin Time (Protime)PT. 12.1 SECONDS (11.7-14.9)
[2020-08-13 13:14] LABS: Amphetamine Urine VISTA NEGATIVE (<1000 ng/mL); Barbiturate Urine VISTA POSITIVE (< 200 ng/mL); Benzodiazepine Urine VISTA NEGATIVE (< 200 ng/mL); Cocaine Urine VISTA NEGATIVE (< 300 ng/mL); Ecstacy Urine VISTA NEGATIVE (< 500 ng/mL); Methadone Urine VISTA NEGATIVE (< 300 ng/mL); PCP Urine VISTA NEGATIVE (< 25 ng/mL); THC Urine VISTA NEGATIVE (< 50 ng/mL); Vista UDS pH Range 5
[2020-08-13] MEDS: Phenobarbital 32.4 MG Tablet 64.8 MG PO ×3 (13:56→21:45)
[2020-08-13] MEDS: Lactated Ringers 1,000 ML 125 ML IV (13:56)
[2020-08-13] MEDS: Gabapentin 300 MG Capsule PO (15:26)
[2020-08-13] MEDS: hydrOXYzine PAM 25 MG Capsule 50 MG PO (19:32)
[2020-08-13] MEDS: Enoxaparin 40 MG/0.4 ML Syringe SC (21:45)
[2020-08-13] MEDS: traZODone 100 MG Tablet PO (21:45)
[2020-08-14] VITALS (7 sets, daily range): BP systolic 119–153; BP diastolic 59–79; PULSE 70–78; RESP 16–18; TEMP 35.9–37; O2SAT 95–97
[2020-08-14] MEDS: Gabapentin 300 MG Capsule PO ×2 (01:39→10:44)
[2020-08-14] MEDS: Phenobarbital 32.4 MG Tablet 64.8 MG PO ×6 (01:40→21:42)
--- NOTE | 2020-08-14 08:03 | PN_ITS ---
Patient Problems: Active and Suspected Problems Alcohol withdrawal (Acute) Hyponatremia (Acute) Reason for Visit: Acute alcohol withdrawal Subjective: Patient is a 50-year-old gentleman with history of chronic alcohol use presented with acute alcohol withdrawal 08/14/2020; patient seen remains tremulous. Has a significantly flat affect. Sodium levels 127 Objective: GENERAL: Cooperative HEENT: Atraumatic; EYES; Anicteric, Normal Conjunctiva NECK; supple, normal thyroid, RESPIRATORY: Diminished to auscultation CARDIOVASCULAR: Regular S1 S2, GI: soft, normoactive bowel sounds, : No Renal angle tenderness; EXTREMITIES: No edema, no clubbing, MUSCULOSKELETAL: no muscle waisting NEURO: Awake; no lateralizing signs. SKIN: No Rash PSYCH; Flat affect Vitals/I&O's: Vital Signs Temp Pulse Resp BP Pulse Ox 96.7 F L 78 16 129/75 H 96 08/14/20 05:38 08/14/20 05:38 08/14/20 05:38 08/14/20 05:38 08/14/20 05:38 Oxygen Delivery Method CPAP Weight: 129.9 kg Body Mass Index (BMI) 39.9 Intake and Output for Last 24 Hours 08/12/20 08/13/20 08/14/20 23:59 23:59 23:59 Intake Total 1300 / 1300 Balance 1300 / 1300 Laboratory Results 08/13/20 12:00: Urine Opiates Screen NEGATIVE, Urine Methadone Screen NEGATIVE, Ur Barbiturates Screen POSITIVE H, Ur Phencyclidine Scrn NEGATIVE, Ur Amphetamines Screen NEGATIVE, U Methamphetamin-MDMA NEGATIVE, U Benzodiazepines Scrn NEGATIVE, Urine Cocaine Screen NEGATIVE, U Cannabinoids Screen NEGATIVE, Ur Drug Screen Comment 08/13/20 12:15: WBC 13.1 H, RBC 4.86, Hgb 16.1, Hct 45.7, MCV 94.0, MCH 33.1 H, MCHC 35.2, RDW Std Deviation 46.5 H, RDW Coeff of Yecenia 13.5, Plt Count 277, MPV 9.0, Immature Gran % (Auto) 1.100 H, Neut % (Auto) 53.7, Lymph % (Auto) 23.9, Garrett % (Auto) 18.6 H, Eos % (Auto) 2.0, Baso % (Auto) 0.7, Absolute Neuts (auto) 7.1, Absolute Lymphs (auto) 3.14, Nucleated RBC % 0, Diff Path Review November08/13/20 12:15: PT 12.1, INR 0.9 08/13/20 12:15: Sodium 127 L, Potassium 4.3, Chloride 95 L, Carbon Dioxide 24.0, Anion Gap 8, BUN 19 H, Creatinine 1.11, Estim Creat Clear Calc 86.68, Est GFR (MDRD) Af Amer 91, Est GFR (MDRD) Non-Af 75, BUN/Creatinine Ratio 17.1, Glucose 116 H, Calcium 7.9 L, Total Bilirubin 0.40, AST 36, ALT 39, Alkaline Phosphatase 89, Total Protein 7.5, Albumin 3.2, Globulin 4.3 H, Albumin/Globulin Ratio 0.7 L 08/13/20 12:15: Ethyl Alcohol 374.0 H* Current Medications Acetaminophen (Acetaminophen 500 Mg Tablet) 500 mg PO Q4H PRN PRN PRN Reason: Temp > 100.4 F Al Hydroxide/Mg Hydroxide (Mag Hydrox/Al Hydrox/Simeth 30 Ml Udc) 30 ml PO Q6H PRN PRN PRN Reason: dyspesia Bisacodyl (Bisacodyl 10 Mg Suppository) 10 mg RECTAL DAILY PRN PRN Reason: Constipation Dicyclomine HCl (Dicyclomine 10 Mg Capsule) 20 mg PO Q6H PRN PRN PRN Reason: abdominal discomfort Enoxaparin Sodium (Enoxaparin 40 Mg/0.4 Ml Syringe) 40 mg SC Q12 [facility] Last Admin: 08/13/20 21:45 Dose: 40 mg Documented by: Folic Acid (Folic Acid 1 Mg Tablet) 1 mg PO DAILY@0800 [facility] Gabapentin (Gabapentin 300 Mg Capsule) 300 mg PO Q8H PRN PRN PRN Reason: moderate to severe anxiety Last Admin: 08/14/20 01:39 Dose: 300 mg Documented by: Hydroxyzine Pamoate (Hydroxyzine Grace 25 Mg Capsule) 50 mg PO Q4H PRN PRN PRN Reason: mild anxiety Last Admin: 08/13/20 19:32 Dose: 50 mg Documented by: Loperamide HCl (Loperamide 2 Mg Capsule) 2 mg PO Q4H PRN PRN PRN Reason: LOOSE STOOLS Nicotine (Nicotine 21 Mg Patch) 21 mg TD DAILY [facility] Last Admin: 08/13/20 15:26 Dose: 21 mg Documented by: Ondansetron HCl (Ondansetron 8 Mg Tablet) 8 mg PO Q8H PRN PRN PRN Reason: NAUSEA Phenobarbital (Phenobarbital 32.4 Mg Tablet) 97.2 mg PO Q4H [facility]; Taper Stop: 08/17/20 21:44 Last Admin: 08/14/20 05:38 Dose: 97.2 mg Documented by: Senna (Senna Tablet) 2 tablet PO QHS PRN PRN Reason: Constipation Sodium Chloride (0.9% Saline Lock 10 Ml Syringe) 10 - 40 ml IV UD PRN PRN Reason: SALINE FLUSH Thiamine HCl (Thiamine Hydrochloride 100 Mg Tablet) [facility] Trazodone HCl (Trazodone 100 Mg Tablet) 100 mg PO QHS PRN PRN Reason: INSOMNIA Last Admin: 08/13/20 21:45 Dose: 100 mg Documented by: STROKE Vital Signs/Narrative: Vital Signs Temp Pulse Resp BP Pulse Ox 08/14/20 05:38 96.7 F L 78 16 129/75 H 96 Medical Necessity - Tobacco Use Smoking Status: Current every day smoker Assessment/Plan All Active Problems Alcohol withdrawal (Acute) Hyponatremia (Acute) Patient is a 50-year-old gentleman with history of chronic alcohol use presented with acute alcohol withdrawal 1. Acute alcohol withdrawal -patient has been admitted to regular nursing floor for medical stabilization using phenobarb taper. Also did consult counseling service. Plan is for patient to follow-up with 180 following his discharge 2. Hyponatremia ?Secondary to chronic alcohol use. However level is significantly low compared to previous admissions. Subsequent monitoring of sodium levels with daily BMPs. 3. Obstructive sleep apnea ?On CPAP at night 4. Coronary artery disease ?With previous CT 5. Morbid obesity with BMI of 41.8 ?Weight loss advised 6. Tobacco dependence - Counseled on cessation, offered nicotine patch for tobacco cravings 7. Chronic congestive heart failure ?EF unknown patient; patient is however On Entresto did continue 8. Dyslipidemia -Patient is on statin therapy, continued at home dose 9. Depression ?Patient is on SSRI did continue 10. DVT prophylaxis -Lovenox 40 mg SC twice daily 11. Chronic alcohol use ?Counseled on cessation Inpatient E&M: [id number] [place] [id number]
[2020-08-14] MEDS: Thiamine Hydrochloride 100 MG Tablet PO (10:40)
[2020-08-14] MEDS: Enoxaparin 40 MG/0.4 ML Syringe SC ×2 (10:40→21:43)
[2020-08-14] MEDS: Folic Acid 1 MG Tablet PO (10:40)
--- NOTE | 2020-08-14 10:40 | ADDICTION ---
This quality analyst/technical writer met with patient in his room to complete ASAM, AUDIT and MSE assessments and to plan for d/c. Pt plans to admit into Residential treatment with [facility] directly following d/c from [facility] medical w/d mgmt program. All assessments / documentation completed, faxed to and placed in pt. chart. SW informed of d/c plan.
[2020-08-14] MEDS: Mag Hydrox/Al Hydrox/Simeth 30 ML UDC PO (12:28)
[2020-08-14 12:43] LABS: Bacteria 0 SEEN /hpf (None Seen); Mucous, Urine 0 SEEN /hpf (<or=2+); Red Blood Cells-Urine 0 SEEN /hpf (0-5)
[2020-08-14 12:51] LABS: Color, Urine Yellow (Yellow); Glucose, Dipstick Normal (Normal); Ketone-Dipstick Negative (Negative); Leukocyte Esterase-Dipstick 100 /ul (Negative); Nitrite-Dipstick Negative (Negative); Occult Blood-Urine Negative /ul (Negative); Protein-Dipstick 100 mg/dl (Negative); Urine Bilirubin Dipstick Negative (Negative); Urine Clarity Sl. Cloudy (Clear); Urine Urobilinogen Normal (Normal)
[2020-08-14 12:59] LABS: Squamous Epithelial Cells - UA 0-5 SEEN /hpf (0-5); White Blood Cells 10-25 SEEN /hpf (0-5)
[2020-08-14 13:19] LABS: Pathologist Review Reviewed
--- NOTE | 2020-08-14 13:56 | CASEMGMT ---
Social Work Note SW received call from Diandra at [facility] stating pickling machine operator time is 10:30am Wednesday for pt to admit directly to [facility]. Rajani Delgadillo HEAD START COORDINATOR, BULK SEALER
[2020-08-14] MEDS: LORazepam 2 MG/ML Syringe 1 MG IV (17:43)
[2020-08-14] MEDS: 0.9% Saline Lock 10 ML Syringe IV (17:43)
[2020-08-14] MEDS: Carvedilol 25 MG Tablet PO (21:42)
[2020-08-14] MEDS: SACUBITRIL/VALSARTAN 24/26 MG TABLET 1 EACH PO (21:42)
[2020-08-14] MEDS: Atorvastatin Calcium 80 MG Tablet PO (21:43)
[2020-08-15] MEDS: Phenobarbital 32.4 MG Tablet 64.8 MG PO ×6 (01:46→21:09)
[2020-08-15 01:52] VITALS: BP 137/76; PULSE 77; RESP 18; TEMP 37.2; O2SAT 94
--- NOTE | 2020-08-15 07:56 | PCM.PN.HOSP ---
Patient Problems: Active and Suspected Problems Alcohol withdrawal (Acute) Hyponatremia (Acute) Reason for Visit: Acute alcohol withdrawal Subjective: Patient did receive a dose of Ativan 1 mg x 1 as a result of significant symptoms. Objective: GENERAL: Cooperative HEENT: Atraumatic; EYES; Anicteric, Normal Conjunctiva NECK; supple, normal thyroid, RESPIRATORY: Diminished to auscultation CARDIOVASCULAR: Regular S1 S2, GI: soft, normoactive bowel sounds, : No Renal angle tenderness; EXTREMITIES: No edema, no clubbing, MUSCULOSKELETAL: no muscle waisting NEURO: Awake; no lateralizing signs. SKIN: No Rash PSYCH; Flat affect Vitals/I&O's: Vital Signs Temp Pulse Resp BP Pulse Ox 98.9 F 77 18 137/76 H 94 08/15/20 01:52 08/15/20 01:52 08/15/20 01:52 08/15/20 01:52 08/15/20 01:52 Oxygen Delivery Method Room Air Weight: 129.9 kg Body Mass Index (BMI) 39.9 Intake and Output for Last 24 Hours 08/13/20 08/14/20 08/15/20 23:59 23:59 23:59 Intake Total 1300 / 1300 610 / 610 Balance 1300 / 1300 610 / 610 Laboratory Results 08/13/20 12:15: Diff Path Review Reviewed 08/14/20 12:32: Urine Color Yellow, Urine Clarity Sl. Cloudy, Urine pH 6.0, Ur Specific [place] 1.010, Urine Protein 100 H, Urine Glucose (UA) Normal, Urine Ketones Negative, Urine Occult Blood Negative, Urine Nitrite Negative, Urine Bilirubin Negative, Urine Urobilinogen Normal, Ur Leukocyte Esterase 100 H, Urine RBC 0 SEEN, Urine WBC 10-25 SEEN, Ur Squamous Epith Cells 0-5 SEEN, Urine Bacteria 0 SEEN, Urine Mucus 0 SEEN Current Medications Acetaminophen (Acetaminophen 500 Mg Tablet) 500 mg PO Q4H PRN PRN PRN Reason: Temp > 100.4 F Al Hydroxide/Mg Hydroxide (Mag Hydrox/Al Hydrox/Simeth 30 Ml Udc) 30 ml PO Q6H PRN PRN PRN Reason: dyspesia Last Admin: 08/14/20 12:28 Dose: 30 ml Documented by: Atorvastatin Calcium (Atorvastatin Calcium 80 Mg Tablet) 80 mg PO QHS JACI Last Admin: 08/14/20 21:43 Dose: 80 mg Documented by: Bisacodyl (Bisacodyl 10 Mg Suppository) 10 mg RECTAL DAILY PRN PRN Reason: Constipation Carvedilol (Carvedilol 25 Mg Tablet) 25 mg PO BID [facility] Last Admin: 08/14/20 21:42 Dose: 25 mg Documented by: Dicyclomine HCl (Dicyclomine 10 Mg Capsule) 20 mg PO Q6H PRN PRN PRN Reason: abdominal discomfort Enoxaparin Sodium (Enoxaparin 40 Mg/0.4 Ml Syringe) 40 mg SC Q12 [facility] Last Admin: 08/14/20 21:43 Dose: 40 mg Documented by: Fluoxetine HCl (Fluoxetine 20 Mg Capsule) 40 mg PO DAILY [facility] Folic Acid (Folic Acid 1 Mg Tablet) 1 mg PO DAILY@0800 [facility] Last Admin: 08/14/20 10:40 Dose: 1 mg Documented by: Gabapentin (Gabapentin 300 Mg Capsule) 300 mg PO Q8H PRN PRN PRN Reason: moderate to severe anxiety Last Admin: 08/14/20 10:44 Dose: 300 mg Documented by: Hydroxyzine Pamoate (Hydroxyzine Grace 25 Mg Capsule) 50 mg PO Q4H PRN PRN PRN Reason: mild anxiety Last Admin: 08/13/20 19:32 Dose: 50 mg Documented by: Loperamide HCl (Loperamide 2 Mg Capsule) 2 mg PO Q4H PRN PRN PRN Reason: LOOSE STOOLS Multivit/Ca Carb/B Cmplx/FA/Prenat (Folic Acid/Vitamin B Comp W-C 1 Capsule) 1 capsule PO DAILY [facility] Nicotine (Nicotine 21 Mg Patch) 21 mg TD DAILY [facility] Last Admin: 08/14/20 10:40 Dose: 21 mg Documented by: Ondansetron HCl (Ondansetron 8 Mg Tablet) 8 mg PO Q8H PRN PRN PRN Reason: NAUSEA Phenobarbital (Phenobarbital 32.4 Mg Tablet) 64.8 mg PO Q4H [facility]; Taper Stop: 08/17/20 21:44 Last Admin: 08/15/20 05:37 Dose: 64.8 mg Documented by: Sacubitril/Valsartan (Sacubitril/Valsartan 24/26 Mg Tablet) 1 each PO BID [facility] Last Admin: 08/14/20 21:42 Dose: 1 each Documented by: Senna (Senna Tablet) 2 tablet PO QHS PRN PRN Reason: Constipation Sodium Chloride (0.9% Saline Lock 10 Ml Syringe) 10 - 40 ml IV UD PRN PRN Reason: SALINE FLUSH Last Admin: 08/14/20 17:43 Dose: 10 ml Documented by: Thiamine HCl (Thiamine Hydrochloride 100 Mg Tablet) 100 mg PO DAILYCM JACI Last Admin: 08/14/20 10:40 Dose: 100 mg Documented by: Trazodone HCl (Trazodone 100 Mg Tablet) 100 mg PO QHS PRN PRN Reason: INSOMNIA Last Admin: 08/13/20 21:45 Dose: 100 mg Documented by: Medical Necessity - Tobacco Use Smoking Status: Current every day smoker Assessment/Plan All Active Problems Alcohol withdrawal (Acute) Hyponatremia (Acute) Patient is a 50-year-old gentleman with history of chronic alcohol use presented with acute alcohol withdrawal 1. Acute alcohol withdrawal -patient has been admitted to regular nursing floor for medical stabilization using phenobarb taper. Also did consult counseling service. Plan is for patient to follow-up with 180 following his discharge 08/15/2020; Patient did receive a dose of Ativan 1 mg x 1 as a result of significant symptoms. 2. Hyponatremia ?Secondary to chronic alcohol use. However level is significantly low compared to previous admissions. Subsequent monitoring of sodium levels with daily BMPs. ; sodium levels up to 134 3. Obstructive sleep apnea ?On CPAP at night 4. Coronary artery disease ?With previous [place] 5. Morbid obesity with BMI of 41.8 ?Weight loss advised 6. Tobacco dependence - Counseled on cessation, offered nicotine patch for tobacco cravings 7. Chronic congestive heart failure ?EF unknown patient; patient is however On Entresto did continue 8. Dyslipidemia -Patient is on statin therapy, continued at home dose 9. Depression ?Patient is on SSRI did continue 10. DVT prophylaxis -Lovenox 40 mg SC twice daily 11. Chronic alcohol use ?Counseled on cessation Inpatient E&M: [id number] [facility] Hosp L2
[2020-08-15 09:19] LABS: Anion Gap 3 (5-15); BUN 21 mg/dL (7-18); BUN/Creat Ratio 18.1 RATIO (10-20); Calcium,Total 8.4 mg/dL (8.5-10.1); Chloride 102 mmol/L (98-107); Creatinine, Serum 1.16 mg/dL (0.70-1.30); EST Glomerular Filtration Rate 71 mL/min (>60); Est Glom Filt Rate - Afr Amer 86 mL/min (>60); Estimated Creatinine Clearance 82.95 ml/min; Glucose 139 mg/dL (74-106); Sodium Level 134 mmol/L (136-145)
--- NOTE | 2020-08-15 09:23 | ADDICTION ---
This development writer met with pt. briefly in his room to finalize d/c plan. Pt to be d/c 08/16/20 and will be transported by [facility] staff to main office for direct admit into [facility]. Pt. acevedo.
[2020-08-15] MEDS: Folic Acid/Vitamin B Comp W-C 1 Capsule 1 CAP PO (09:53)
[2020-08-15] MEDS: Carvedilol 25 MG Tablet PO ×2 (09:53→21:09)
[2020-08-15] MEDS: Thiamine Hydrochloride 100 MG Tablet PO (09:53)
[2020-08-15] MEDS: Enoxaparin 40 MG/0.4 ML Syringe SC ×2 (09:53→21:10)
[2020-08-15] MEDS: Folic Acid 1 MG Tablet PO (09:53)
[2020-08-15] MEDS: SACUBITRIL/VALSARTAN 24/26 MG TABLET 1 EACH PO ×2 (09:53→21:09)
[2020-08-15] MEDS: FLUoxetine 20 MG Capsule 40 MG PO (09:54)
[2020-08-15 09:55] VITALS: BP 157/81; PULSE 72; RESP 18; TEMP 36.7; O2SAT 92
[2020-08-15 13:32] VITALS: BP 131/61; PULSE 70; RESP 18; TEMP 36.6; O2SAT 96
[2020-08-15] MEDS: hydrOXYzine PAM 25 MG Capsule 50 MG PO ×2 (15:53→21:09)
[2020-08-15] MEDS: Gabapentin 300 MG Capsule PO (15:54)
[2020-08-15 17:50] VITALS: BP 135/60; PULSE 66; RESP 16; TEMP 36.7; O2SAT 94
[2020-08-15 20:55] VITALS: BP 148/70; PULSE 60; RESP 16; TEMP 36.6; O2SAT 97
[2020-08-15] MEDS: Atorvastatin Calcium 80 MG Tablet PO (21:09)
[2020-08-16] MEDS: Gabapentin 300 MG Capsule PO (00:16)
[2020-08-16] MEDS: traZODone 100 MG Tablet PO (00:18)
[2020-08-16 03:27] VITALS: BP 139/74; PULSE 67; RESP 16; TEMP 36.8; O2SAT 97
[2020-08-16] MEDS: Phenobarbital 32.4 MG Tablet 64.8 MG PO ×2 (03:34→09:48)
[2020-08-16] MEDS: hydrOXYzine PAM 25 MG Capsule 50 MG PO (03:34)
[2020-08-16] MEDS: Folic Acid 1 MG Tablet PO (07:48)
[2020-08-16] MEDS: Thiamine Hydrochloride 100 MG Tablet PO (07:48)
[2020-08-16 07:49] VITALS: BP 143/73; PULSE 67; RESP 18; TEMP 36.8; O2SAT 98
[2020-08-16] MEDS: SACUBITRIL/VALSARTAN 24/26 MG TABLET 1 EACH PO (07:58)
[2020-08-16] MEDS: Carvedilol 25 MG Tablet PO (07:58)
[2020-08-16] MEDS: Folic Acid/Vitamin B Comp W-C 1 Capsule 1 CAP PO (07:58)
--- NOTE | 2020-08-16 08:39 | DCINST_ITS ---
- Discharge Diagnoses Current Active Problems: Current Active and Chronic Problems Alcohol withdrawal (Acute) Alcoholism (Chronic) Hyponatremia (Acute) Erythrocytosis (Chronic) Tobacco abuse (Chronic) CAD (coronary artery disease) (Chronic) Body mass index (BMI) of 40.1 to 44.9 in adult (Chronic) MARIE (obstructive sleep apnea) (Chronic) You will use the following diet at home:: Cardiac Your food should be the consistency of: Regular Allergies/Adverse Reactions: Allergies No Known Allergies Allergy (Verified 08/13/20 11:16) Medications to take at Discharge Atorvastatin Calcium 80 mg PO DAILY 08/13/20 B Complex W-C No.20/Folic Acid [Renal Caps Softgel] 1 mg PO DAILY 08/13/20 Carvedilol 25 mg PO BID 08/13/20 Fluoxetine HCl 40 mg PO DAILY 08/13/20 Sacubitril/Valsartan 24/26 mg [Entresto 24 mg-26 mg Tablet] 1 ea PO BID 08/13/20 Primary Care Physician: Tracey Santillan DO [Primary Care Provider] - Please follow up with your Primary Care Physician in: in 1-2 weeks Test Results: Test results from this visit will be discussed in further detail at your follow- up appointment, if applicable. Proposed Discharge Date: 08/16/20
--- NOTE | 2020-08-16 08:40 | PCM.DC.SUM ---
Discharge Date and Diagnosis - Problem List Patient Problems: Active and Suspected Problems Alcohol withdrawal (Acute) Hyponatremia (Acute) Date of Admission: 08/13/20 Date of Discharge: 08/16/20 - Primary Discharge Diagnosis Acute Problems: Active Problems Alcohol withdrawal (Acute) Hyponatremia (Acute) - Secondary Discharge Diagnosis Chronic Problems: Chronic Problems Alcoholism (Chronic) Erythrocytosis (Chronic) Tobacco abuse (Chronic) CAD (coronary artery disease) (Chronic) Body mass index (BMI) of 40.1 to 44.9 in adult (Chronic) MARIE (obstructive sleep apnea) (Chronic) Hospital Course and Treatment Summary of Care Provided: Patient is a 50-year-old gentleman with history of chronic alcohol use presented with acute alcohol withdrawal 1. Acute alcohol withdrawal -patient has been admitted to regular nursing floor for medical stabilization using phenobarb taper. Also did consult counseling service. Plan is for patient to follow-up with 180 following his discharge 08/15/2020; Patient did receive a dose of Ativan 1 mg x 1 as a result of significant symptoms. 2. Hyponatremia ?Secondary to chronic alcohol use. However level is significantly low compared to previous admissions. Subsequent monitoring of sodium levels with daily BMPs. -; sodium levels up to 134 3. Obstructive sleep apnea ?On CPAP at night 4. Coronary artery disease ?With previous [place] 5. Morbid obesity with BMI of 41.8 ?Weight loss advised 6. Tobacco dependence - Counseled on cessation, offered nicotine patch for tobacco cravings 7. Chronic congestive heart failure ?EF unknown patient; patient is however On Entresto did continue 8. Dyslipidemia -Patient is on statin therapy, continued at home dose 9. Depression ?Patient is on SSRI did continue 10. DVT prophylaxis -Lovenox 40 mg SC twice daily 11. Chronic alcohol use -Counseled on cessation Patient Problems: Active and Suspected Problems Alcohol withdrawal (Acute) Hyponatremia (Acute) Objective: GENERAL: Cooperative HEENT: Atraumatic; EYES; Anicteric, Normal Conjunctiva NECK; supple, normal thyroid, RESPIRATORY: Diminished to auscultation CARDIOVASCULAR: Regular S1 S2, GI: soft, normoactive bowel sounds, : No Renal angle tenderness; EXTREMITIES: No edema, no clubbing, MUSCULOSKELETAL: no muscle waisting NEURO: Awake; no lateralizing signs. SKIN: No Rash PSYCH; Flat affect - Physical Exam Vitals/I&O's: Vital Signs Temp Pulse Resp BP Pulse Ox 98.2 F 67 18 143/73 H 98 08/16/20 07:49 08/16/20 07:49 08/16/20 07:49 08/16/20 07:49 08/16/20 07:49 Oxygen Delivery Method Room Air Weight: 129.9 kg Body Mass Index (BMI) 39.9 Intake and Output for Last 24 Hours 08/14/20 08/15/20 08/16/20 23:59 23:59 23:59 Intake Total 610 / 610 1000 / 1000 400 / 400 Balance 610 / 610 1000 / 1000 400 / 400 Laboratory Results 08/15/20 08:30: Sodium 134 L, Potassium 4.0, Chloride 102, Carbon Dioxide 29.0, Anion Gap 3 L, BUN 21 H, Creatinine 1.16, Estim Creat Clear Calc 82.95, Est GFR (MDRD) Af Amer 86, Est GFR (MDRD) Non-Af 71, BUN/Creatinine Ratio 18.1, Glucose 139 H, Calcium 8.4 L, Magnesium 2.0 Current Medications Acetaminophen (Acetaminophen 500 Mg Tablet) 500 mg PO Q4H PRN PRN PRN Reason: Temp > 100.4 F Al Hydroxide/Mg Hydroxide (Mag Hydrox/Al Hydrox/Simeth 30 Ml Udc) 30 ml PO Q6H PRN PRN PRN Reason: dyspesia Last Admin: 08/14/20 12:28 Dose: 30 ml Documented by: Atorvastatin Calcium (Atorvastatin Calcium 80 Mg Tablet) 80 mg PO QHS [facility] Last Admin: 08/15/20 21:09 Dose: 80 mg Documented by: Bisacodyl (Bisacodyl 10 Mg Suppository) 10 mg RECTAL DAILY PRN PRN Reason: Constipation Carvedilol (Carvedilol 25 Mg Tablet) 25 mg PO BID [facility] Last Admin: 08/16/20 07:58 Dose: 25 mg Documented by: Dicyclomine HCl (Dicyclomine 10 Mg Capsule) 20 mg PO Q6H PRN PRN PRN Reason: abdominal discomfort Enoxaparin Sodium (Enoxaparin 40 Mg/0.4 Ml Syringe) 40 mg SC Q12 [facility] Last Admin: 08/16/20 07:58 Dose: Not Given Documented by: Fluoxetine HCl (Fluoxetine 20 Mg Capsule) 40 mg PO DAILY [facility] Last Admin: 08/16/20 07:58 Dose: Not Given Documented by: Folic Acid (Folic Acid 1 Mg Tablet) 1 mg PO DAILY@0800 [facility] Last Admin: 08/16/20 07:48 Dose: 1 mg Documented by: Gabapentin (Gabapentin 300 Mg Capsule) 300 mg PO Q8H PRN PRN PRN Reason: moderate to severe anxiety Last Admin: 08/16/20 00:16 Dose: 300 mg Documented by: Hydroxyzine Pamoate (Hydroxyzine Grace 25 Mg Capsule) 50 mg PO Q4H PRN PRN PRN Reason: mild anxiety Last Admin: 08/16/20 03:34 Dose: 50 mg Documented by: Loperamide HCl (Loperamide 2 Mg Capsule) 2 mg PO Q4H PRN PRN PRN Reason: LOOSE STOOLS Multivit/Ca Carb/B Cmplx/FA/Prenat (Folic Acid/Vitamin B Comp W-C 1 Capsule) 1 capsule PO DAILY [facility] Last Admin: 08/16/20 07:58 Dose: 1 capsule Documented by: Nicotine (Nicotine 21 Mg Patch) 21 mg TD DAILY [facility] Last Admin: 08/16/20 07:59 Dose: Not Given Documented by: Ondansetron HCl (Ondansetron 8 Mg Tablet) 8 mg PO Q8H PRN PRN PRN Reason: NAUSEA Phenobarbital (Phenobarbital 32.4 Mg Tablet) 64.8 mg PO Q6H [facility]; Taper Stop: 08/17/20 21:44 Last Admin: 08/16/20 03:34 Dose: 64.8 mg Documented by: Sacubitril/Valsartan (Sacubitril/Valsartan 24/26 Mg Tablet) 1 each PO BID [facility] Last Admin: 08/16/20 07:58 Dose: 1 each Documented by: Senna (Senna Tablet) 2 tablet PO QHS PRN PRN Reason: Constipation Sodium Chloride (0.9% Saline Lock 10 Ml Syringe) 10 - 40 ml IV UD PRN PRN Reason: SALINE FLUSH Last Admin: 08/14/20 17:43 Dose: 10 ml Documented by: Thiamine HCl ([facility]ide [facility] Mg [facility]t) [facility] Last Admin: 08/16/20 07:48 Dose: 100 mg Documented by: Trazodone HCl (Trazodone 100 Mg Tablet) 100 mg PO QHS PRN PRN Reason: INSOMNIA Last Admin: 08/16/20 00:18 Dose: 100 mg Documented by: Discharge Diet: Low fat/ Low Cholesterol Home Medications: Medications to take at Discharge Atorvastatin Calcium 80 mg PO DAILY 08/13/20 B Complex W-C No.20/Folic Acid [Renal Caps Softgel] 1 mg PO DAILY 08/13/20 Carvedilol 25 mg PO BID 08/13/20 Fluoxetine HCl 40 mg PO DAILY 08/13/20 Sacubitril/Valsartan 24/26 mg [Entresto 24 mg-26 mg Tablet] 1 ea PO BID 08/13/20 Primary Care Physician: Tracey Santillan DO [Primary Care Provider] - Please follow up with your Primary Care Physician in: in 1-2 weeks Disposition: Home Minutes spent on discharge:: 35 Patient Condition:: Stable Medical Necessity - Tobacco Use Smoking Status: Current every day smoker Meaningful Use Info Meaningful Use Diagnoses (Choose all that apply): None applicable Inpatient E&M: [id number] [facility] Hosp
--- NOTE | 2020-08-16 09:40 | ADDICTION ---
This travel writer met with pt in his room to finalize d/c plan. Pt is being picked up by his significant other and is being directly transported to [facility] for [facility] treatment. Pt amiable to this plan.
== END 2020-08-16 10:00 | disposition home or self-care (01) | DRG 775 ==
LOC: ED 11:47 → MS3 12:11
PROVIDERS: Admitting Provider Internal Medicine; Emergency Provider Emergency Medicine; Visit Provider Internal Medicine
DX: F10.239 Alcohol dependence with withdrawal, unspecified (principal); F10.229 Alcohol dependence with intoxication, unspecified; E87.1 Hypo-osmolality and hyponatremia; I50.9 Heart failure, unspecified; I25.10 Atherosclerotic heart disease of native coronary artery without angina pectoris; D75.1 Secondary polycythemia; E78.5 Hyperlipidemia, unspecified; G47.33 Obstructive sleep apnea (adult) (pediatric); F32.9 Major depressive disorder, single episode, unspecified; F41.9 Anxiety disorder, unspecified; F17.200 Nicotine dependence, unspecified, uncomplicated; E66.01 Morbid (severe) obesity due to excess calories; Z68.41 Body mass index [BMI] 40.0-44.9, adult; I25.2 Old myocardial infarction; Z79.899 Other long term (current) drug therapy
CPT/HCPCS: 36415; 80048; 80053; 80307; 81001; 82077; 83735; 85025; 85610; 99283; 99406; J7120; A4216

== ENCOUNTER → 2020-09-10 08:50 | Outpatient (CLI) | payer MEDICAID, SELFPAY ==
[2020-08-13 12:59] VITALS: BMI 39.9
[2020-09-10 09:00] LABS: Hemoglobin 14.7 g/dL (13.0-16.5); Mean Corp Hgb Conc 32.7 g/dL (32-36); Mean Corpuscular Hgb 32.7 pg (27.0-32.0); Mean Corpuscular Volume 100.2 fL (80-94); Mean Platelet Vol. 9.5 fl (6.2-12.0); Platelet Count 285 K/mm3 (150-450); RBC Distribution Width CV 12.8 % (11.6-14.6); Red Blood Count 4.49 M/mm3 (4.6-6.2); White Blood Count 10.4 K/mm3 (4.4-11.0)
[2020-09-10 09:30] LABS: ALB/GLOB Ratio 0.8 RATIO (0.9-2.4); AST(SGOT) 26 U/L (15-37); Alanine Aminotransfer ALT/SGPT 45 U/L (16-61); Albumin, Serum 3.6 g/dL (3.2-5.0); Alkaline Phosphatase 65 U/L (45-117); Anion Gap 3 (5-15); BUN 25 mg/dL (7-18); Calcium,Total 9.3 mg/dL (8.5-10.1); Chloride 106 mmol/L (98-107); Creatinine, Serum 1.47 mg/dL (0.70-1.30); EST Glomerular Filtration Rate 54 mL/min (>60); Est Glom Filt Rate - Afr Amer 66 mL/min (>60); Globulin 4.4 g/dL (2.2-4.2); Glucose 150 mg/dL (74-106); Potassium 4.5 mmol/L (3.5-5.1); Sodium Level 138 mmol/L (136-145)
== END ==
PROVIDERS: Referring Provider Family Medicine; Visit Provider Family Medicine
DX: F10.20 Alcohol dependence, uncomplicated (principal)
CPT/HCPCS: 36415; 80053; 85027